=== PATIENT | female | born 1975 | race Caucasian/White ===

== ENCOUNTER 2019-10-09 18:49 | Emergency (ER) | payer OTHER, SELFPAY ==
[~2019-10-09] VITALS: Ht 162.6 cm; Wt 61.2 kg
[2019-10-09 19:14] VITALS: BP_SYST 111
[2019-10-09 20:15] VITALS: BP_SYST 111
== END 2019-10-09 20:15 | disposition home or self-care (01) ==
LOC: SED 18:49
DX: R07.89 Other chest pain (principal)
CPT/HCPCS: 71045; 99283